=== PATIENT | female | born 2005 | race Caucasian/White ===

== ENCOUNTER 2023-02-15 13:16 | Emergency (ER) | payer OTHER, SELFPAY ==
[2023-02-15 13:18] VITALS: BP 95/65; PULSE 86; RESP 18; TEMP 35.7; O2SAT 100; BMI 19.3
--- NOTE | 2023-02-15 14:25 | EKG12_ITS ---
Test Reason : SYNCOPE Blood Pressure : / mmHG Vent. Rate : 069 BPM Atrial Rate : 069 BPM P-R Int : 152 ms QRS Dur : 076 ms QT Int : 398 ms P-R-T Axes : 045 067 039 degrees QTc Int : 426 ms Sinus rhythm with marked sinus arrhythmia Otherwise normal ECG Confirmed by KARIN HAJI, PHUC ([id number]), continuity editor GERSON CRUZ ([id number]) on 02/21/2023 9:03:14 AM Referred By: Confirmed By:GLORIA FRAZIER MD
--- NOTE | 2023-02-15 14:26 | ED.VIS.GI ---
HPI HPI - GI History of Present Illness Chief Complaint: Nausea/Vomiting Detail of Chief Complaint: Syncopal episode. Informant: patient and parent Abdominal Pain/Flank Pain Onset: Today Context: Gradual Onset Timing: Intermittent Nausea/Vomiting/Emesis GI Symptom: Positive for Nausea and Vomiting Onset: Today and Yesterday Severity: Mild Diarrhea/Melena/Hematochezia GI Symptom: Negative for Diarrhea, Melena or Hematochezia Associated Symptoms Associated Symptoms: Negative for Dysuria, Frequency, Hematuria or Urgency Narrative Narrative: 17-year-old female on Celexa for anxiety and depression. Said she started with nausea yesterday started nausea and vomiting today. While she was nausea by the day she had a syncopal episode and passed out and fell to the floor. Denies any injuries. She has a mild abrasion on her left forehead from her glasses. This was unwitnessed because her mom was at work. She denies any headache, chest pain, abdominal pain. Denies any diarrhea nor dysuria. No melena. No fever. Last menstrual period is now. Prior similar symptoms: No Recent Illness/Hospitalization: No PFSH PFSH Medical History no medical history Allergy/AdvReac Type Severity Reaction Status Date / Time No Known Allergies Allergy Verified 02/15/23 13:18 Family History no significant family his Surgical History no surgical history Social History Smoking Status: Never smoker ROS ROS ED ROS Narrative Nausea and vomiting. Syncopal episode. Review of Systems ROS Unobtainable: Denies due to encephalopathy Constitutional Constitutional ED: Denies chills or fever(s) ENT ENT ED: Denies ear pain Cardiovascular Cardiovascular: Denies chest pain, palpitations or racing heartbeat Respiratory/Chest Respiratory/Chest: Denies cough or dyspnea Gastrointestinal Gastrointestinal: Reports nausea and vomiting; Denies abdominal pain, constipation, diarrhea or melena Genitourinary Genitourinary ED: Denies dysuria or hematuria Integumentary Denies abscess Psychiatric Psychiatric: Denies anxiety Endocrine Endocrinology: Denies polydipsia Hematologic/Lymphatic Hematologic/Lymphatic: Denies easy bleeding Allergic/Immunologic Allergic/Immunologic ED: Denies mouth swelling EXAM Physical Exam Narrative Exam Narrative: Well-appearing 17-year-old female. Mom present in room. Vital signs stable and her blood pressure slightly low at 95/65. She does not look septic or toxic. Mildly dehydrated. H EENT exam pupils round reactive light. Mildly dry mucous membranes. Minor abrasion left forehead. Scalp nontender no trauma. Neck nontender. Back nontender. Lungs clear. Heart regular rhythm no murmur rate about 85. Abdomen nontender, nondistended normal bowel sounds no peritoneal signs. Pelvic girdle intact. Moving all 4 extremities. Nontender no deformity. Neurologically she is awake and alert with no focal motor deficits. Const Vital Signs: 02/15/23 13:18 Temperature 96.3 F L Temperature Source Temporal Pulse Rate 86 Respiratory Rate 18 Blood Pressure 95/65 Blood Pressure Mean 75 Pulse Ox 100 Oxygen Delivery Method Room Air Positive well nourished and well developed; Negative for obese, cachectic, contractures or unkempt General Appearance ED: well developed and NAD; Negative for unkempt, cachectic, contractures or pallor Nutritional Appearance: Negative for cachectic or obese HEENT Reports dry mucous membranes; Denies moist mucous membranes HEENT Narrative: Minor abrasion left forehead. normocephalic and trauma; Negative for atraumatic or tenderness Mouth ED: Yes dry mucous membranes Mouth: dry mucous membranes Eyes PERRL and EOMs intact bilaterally General Eye ED: Negative for pale conjunctiva or scleral icterus Neck no lymphadenopathy, supple and no JVD General: Negative for tenderness Carotids: Negative for other Lymph Lymphatic: Negative for other Resp normal respiratory effort and clear to auscultation bilaterally Effort and Inspection: Negative for respiratory distress Auscultation: Negative for rales, rhonchi or wheezes Cardio regular rate, regular rhythm, S1 normal heart sound, S2 normal heart sound and no murmurs Rate: Negative for bradycardia or tachycardic Rhythm: Negative for abnormal rhythm GI non-tender, non-distended and no masses Inspection: Negative for abdominal distention Auscultation: normoactive bowel sounds Palpation: soft; Negative for tender, guarding or rebound tenderness present Back/Spine no CVA tenderness General Back: Negative for CVA tenderness Cervical Spine: Negative for cervical spine tenderness Thoracic Spine / Upper Back: Negative for thoracic spinal tenderness Lumbar Spine / Lower Back: Negative for lumbar spinal tenderness Extremity full ROM General Extremety ED: Negative for edema or tenderness General Extremity: Negative for edema Neuro CN's II-XII intact bilaterally, moves all extremities and no sensory deficits noted Sensorium / Orientation: alert, oriented to person, oriented to place and oriented to time; Negative for orientation impaired, confused, lethargic or stuporous Motor Exam: strength 5/5 throughout Psych mental status grossly normal and thought process normal Appearance: Negative for unkempt Attitude: No agitated Skin General Skin Exam: Negative for jaundice or pallor Lesions: no lesions Rashes: no rashes Trauma: abrasion Nails: Negative for discolored MDM MDM MDM Narrative Medical decision making narrative: 17-year-old female with nausea and vomiting. Had a syncopal episode. Clinically looks well. Is borderline hypotensive at 95/65. She will be treated with IV fluids times a liter. Zofran for nausea. CBC chemistry and EKG will be obtained. This very well may have been a vasovagal episode. She has a benign exam. Patient doing well at 3:40 PM. Discussed all test results with her and her mom. Repeat exam remains normal. She feels comfortable. Her nausea is resolved. She will be discharged home. Fluids and rest. Return if feeling worse. History & Record Review Discussion w/independent historian: Patient and Family Lab Data Attestation: I reviewed the patient's lab results. Lab results narrative: CBC normal. White count of 6. H&H 12.6 and 38. Platelets 199. Electrolytes unremarkable gap of 6. Normal BUN 9 and creatinine 0.9. Glucose 85. Labs: Laboratory Results - last 24 hr 02/15/23 14:47 WBC 6.7 RBC 4.36 Hgb 12.6 Hct 38.7 MCV 88.8 MCH 28.9 MCHC 32.6 RDW Std Deviation 39.0 RDW Coeff of Cm 12.0 Plt Count 199 MPV 11.6 Immature Gran % (Auto) 0.300 Neut % (Auto) 87.3 H Lymph % (Auto) 4.7 L [place] % (Auto) 7.3 Eos % (Auto) 0.1 Baso % (Auto) 0.3 Absolute Neuts (auto) 5.9 Absolute Lymphs (auto) 0.32 L Nucleated RBC % 0 Sodium 139 Potassium 3.7 Chloride 108 H Carbon Dioxide 25.0 Anion Gap 6 BUN 9 Creatinine 0.94 Estim Creat Clear Calc 80.10 Est GFR (MDRD) Af Amer 98 Est GFR (MDRD) Non-Af 81 BUN/Creatinine Ratio 9.5 L Glucose 85 Calcium 9.1 Rhythm Strip Rhythm Strip: Sinus Rhythm Rate: 69 Ectopy: None EKG Initial EKG: Attestation: I personally reviewed and interpreted this EKG as follows: Interpretation: Sinus Rhythm and No Acute Injury Pattern Comments: Normal sinus rhythm rate of 69 no acute signs of DC or ischemia. No significant dysrhythmia. Discharge Plan Triage Chief Complaint: Nausea/Vomiting Other Complaint: Allergic Reaction Syncope ED Provider: Hunter Guerrero Dx/Rx/DC Orders Clinical Impression: Vasovagal syncope, Nausea & vomiting Instructions: ED Fainting, Vagal Reaction, ED Vomiting (Adult) Primary Care Provider: Claudia Cisneros NP Referrals: Claudia Cisneros NP, [facility] [Primary Care Provider] - 3-5 Days if not improving Activity Restrictions/Additional Instructions: Plenty of fluids and rest. Increase diet slowly as tolerated. Follow-up if not improving or return if worse. Disposition Disposition: Home, Self Care
--- NOTE | 2023-02-15 14:32 | NURSING ---
NO OLD EKGS
[2023-02-15] MEDS: Ondansetron 4 MG/2 ML Vial IV (14:47)
[2023-02-15] MEDS: 0.9% Normal Saline 1,000 ML 1000 ML IV (14:47)
[2023-02-15 15:05] LABS: Absolute Lymphocyte Count 0.32 X10^3/uL (0.83-4.51); Absolute Neutrophil Count 5.9 X10^3/uL (2.0-7.7); Basophil# 0.02 X10^3/uL; Basophil% 0.3 % (0-1); Eosinophil# 0.01 X10^3/uL; Eosinophils% 0.1 % (0-5); Hematocrit 38.7 % (37-47); Hemoglobin 12.6 g/dL (12.0-15.0); Lymphocyte # 0.32 X10^3/ul (0.83-4.51); Lymphocyte % 4.7 % (19-41); Mean Corp Hgb Conc 32.6 g/dL (32-36); Mean Corpuscular Hgb 28.9 pg (27.0-32.0); Mean Corpuscular Volume 88.8 fL (81-99); Mean Platelet Vol. 11.6 fl (6.2-12.0); Monocyte# 0.49 X10^3/uL; Monocyte% 7.3 % (0-10); NRBC Flagged by Analyzer 0 % (0-5); Neutrophil # 5.88 X10^3/uL (2.7-7.7); Neutrophil % 87.3 % (47-70); POSITIVE DIFFERENTIAL YES; Platelet Count 199 K/mm3 (150-450); Red Blood Count 4.36 M/mm3 (4.2-5.4); White Blood Count 6.7 K/mm3 (4.4-11.0)
[2023-02-15 15:24] LABS: Anion Gap 6 (5-15); BUN 9 mg/dL (7-18); BUN/Creat Ratio 9.5 RATIO (10-20); Calcium,Total 9.1 mg/dL (8.5-10.1); Chloride 108 mmol/L (98-107); Creatinine, Serum 0.94 mg/dL (0.55-1.02); EST Glomerular Filtration Rate 81 mL/min (>60); Est Glom Filt Rate - Afr Amer 98 mL/min (>60); Glucose 85 mg/dL (74-106); Potassium 3.7 mmol/L (3.5-5.1); Sodium Level 139 mmol/L (136-145)
[2023-02-15 15:29] LABS: Differential Indicated SCAN CRITERIA MET
[2023-02-15 15:43] LABS: Differential Comment SCANNED
[2023-02-15 15:52] VITALS: BP 102/74; PULSE 86; RESP 18; O2SAT 100
== END 2023-02-15 15:52 | disposition home or self-care (01) ==
PROVIDERS: Emergency Provider Emergency Medicine; PCP Nurse Practitioner Family; Visit Provider Emergency Medicine
DX: R55 Syncope and collapse (principal); R11.2 Nausea with vomiting, unspecified; F32.A Depression, unspecified; F41.9 Anxiety disorder, unspecified; Z79.899 Other long term (current) drug therapy
CPT/HCPCS: 80048; 85025; 93005; 96361; 96374; 99283; J7030; A4216; J2405